=== PATIENT | female | born 1980 | race Hispanic/Latino ===

== ENCOUNTER 2016-11-28 22:46 | Emergency (ER) | payer SELFPAY ==
[~2016-11-28] VITALS: Ht 165.1 cm; Wt 72.7 kg
[2016-11-29] MEDS ORDERED: PERCOCET 5/31 TABLET PO (00:31)
[2016-11-29] MEDS ORDERED: MOTRIN800 MG PO (00:31)
[2016-11-29 01:31] VITALS: BP 127/66
== END 2016-11-29 01:33 | disposition home or self-care (01) ==
LOC: EME 22:46
DX: S93.401A Sprain of unspecified ligament of right ankle, initial encounter (principal); X50.1XXA Overexertion from prolonged static or awkward postures, initial encounter; W18.39XA Other fall on same level, initial encounter; Y93.01 Activity, walking, marching and hiking
CPT/HCPCS: 73610; 99281; 99284